=== PATIENT | female | born 1995 | race Caucasian/White ===

== ENCOUNTER 2019-08-31 03:30 | Inpatient (IN) | payer MEDICAID, SELFPAY ==
[2019-08-31] VITALS (28 sets, daily range): BP systolic 91–149; BP diastolic 44–94; PULSE 62–98; RESP 16–18; TEMP 36.4–37.2; O2SAT 95–99; BMI 49.4
[2019-08-31 03:53] LABS: Basophils % 0.3 %; Eosinophils # 0.1 10^3/uL (0.0-0.8); Eosinophils % 1.1 %; Hematocrit 34.9 % (37.0-47.0); Hemoglobin 11.2 g/dL (11.5-15.3); Lymphocytes # 1.7 10^3/uL (0.8-4.8); Lymphocytes % 16.5 %; Mean Corpuscular HGB Conc 32.1 g/dL (30.0-36.0); Mean Corpuscular Hemoglobin 27.6 pg (28.0-34.0); Mean Platelet Volume 11.8 fL (7.4-10.4); Monocytes # 0.9 10^3/uL (0.2-0.9); Monocytes % 8.4 %; Neutrophils # 7.5 10^3/uL (1.8-7.7); Nucleated Red Blood Cells % 0 %; Platelet Count 208 10^3/cmm (130-400); Red Blood Count 4.06 10^6/uL (4.1-5.3); Red Cell Distribution Width 14.6 % (12.1-15.1); White Blood Count 10.3 10^3/uL (4.0-10.0)
[2019-08-31] MEDS: lactated ringers 1,000 ML 999 ML IV (03:57)
--- NOTE | 2019-08-31 04:00 | P.ANESASSM_ITS ---
Pre-Anesthetic Assessment Pre-Anesthetic Assessment: Height/Weight: Height 1.52 m Weight 114.759 kg Temp Pulse BP 98.4 F 91 127/80 08/31/19 03:30 08/31/19 03:59 08/31/19 03:59 Preop Diagnosis: IUP, ruptured membranes Was Beta Femi taken within 24 hours: N/A Last intake: Intake Last Liquid Date 08/31/19 Last Liquid Time 01:30 Last Solid Date 08/30/19 Last Solid Time 19:00 Social: Social History: No alcohol and No tobacco Exam: Pre-Anes Outpt Exam: alert, oriented x 3, clear to auscultation bilaterally and regular rate & rhythm Airway: Submandibular: WNL Cervical ROM: WNL MP: 2 History/ROS: No significant history except as noted Pulmonary: Pulmonary: None reported CV/HEM: CV/HEM: None reported : : None reported Hepatic: Hepatic: None reported GI: GI: GERD Metabolic: Comments: gestational diabetes Musc/skel: Musc/skel: None reported Neuropsych: Neuropsych: None reported Anesthetic Plan: ASA status: 2E Anesthesia: Anesthesia Evaluation Risk of > 500 ml blood loss (7ml/kg in children): Yes, adequate IV access and fluids planned Meds/Allergies Current Medications: Current Medications Generic Name Dose Route Start Last Admin Trade Name Freq PRN Reason Stop Dose Admin Lactated Ringer's 1,000 mls @ 999 m ls/hr 08/31/19 03:28 08/31/19 04:55 Lactated Ringers IV Infused .Q1H1M PRN Infusion Per L&D Rescitati on Protocol [facility] Anesthesia Female Reproductive History: : 2 Data Anesthesia CBC & Chem 7: 08/31/19 03:30 Other Labs: Laboratory Results - last 48 hr 08/31/19 08/31/19 08/31/19 03:30 03:40 04:14 WBC 10.3 H RBC 4.06 L Hgb 11.2 L Hct 34.9 L MCV 86.0 MCH 27.6 L MCHC 32.1 RDW 14.6 Plt Count 208 MPV 11.8 H Neut % (Auto) 73.0 Lymph % (Auto) 16.5 [place] % (Auto) 8.4 Eos % (Auto) 1.1 Baso % (Auto) 0.3 Neut # (Auto) 7.5 Lymph # (Auto) 1.7 [place] # (Auto) 0.9 Eos # (Auto) 0.1 Baso # (Auto) 0.0 Nucleated RBC % (auto) 0 Nucleated RBCs # 0.0 POC Glucose 90 Urine Opiates Screen Negative Ur Barbiturates Screen Negative Ur Phencyclidine Scrn Negative Ur Amphetamines Screen Negative U Benzodiazepines Scrn Negative Urine Cocaine Screen Negative U Marijuana (THC) Screen Negative Cardiac Studies: No Data to Display
[2019-08-31] MEDS: citric acid-sodium citrate 30 mL UDC PO (04:14)
[2019-08-31] MEDS: famotidine 20 mg/2 mL INJ IVP (04:14)
[2019-08-31] MEDS: metoclopramide 5 mg/mL SDV 2 mL 10 MG IVP (04:15)
--- NOTE | 2019-08-31 04:16 | P.HP_ITS ---
Providers/Chief Complaint Admitting Physician: Marvin Rojas DO Primary BOW MAKER PRODUCTION: [facility] Chief Complaint: possible broken water HPI BOW MAKER PRODUCTION History of Present Illness Noemí Mason is a 23 year old female 001 currently at 39 weeks gestation who is being seen at [facility] with plan delivery at [facility] scheduled for repeat this week. Patient presented to labor and delivery as a walk-in early this a.m. with ruptured membranes at 0130 hrs. at home. Upon arriving she does have gross rupture of membranes cervix is described as being 4 to 5 cm dilated. Reassuring tracing. Patient is now admitted for repeat at this time. She is shawn about every 2 to 3 minutes due to advanced cervical dilatation ruptured membranes and previous C- section I do not feel reasonable to transport her to [place] not?she desires same she wishes to undergo her repeat at this institution. This is complicated by gestational diabetes currently on metformin doing well as far as control of her blood sugars. She has been followed with antepartum testing #2 maternal obesity #3 previous . We do have a copy of her antepartum chart. Her blood type is O+ [employer] screen is negative she is rubella protected serology nonreactive hepatitis B surface antigen was negative TSH unremarkable GC chlamydia not detected HIV nonreactive Pap smear described as normal in 2019. Medications vitamins and metformin thousand milligrams daily she is doing fingersticks. Allergies latex. Past medical history unremarkable except for obesity Past surgical history previous with blood transfusion ( was for arrest of descent done in labor. Present Details : 2 Para: 1 Labs Rubella: Immune RPR: Negative GBS: Negative Review of Systems Const: Denies: fever, chills or body aches Eyes: Denies: change in vision Card: Denies: chest pain or palpitations Resp: Denies: shortness of breath or non-productive cough GI: Denies: abdominal pain, nausea, vomiting or constipation : Denies: difficulty urinating, painful urination, urinary frequency, urinary urgency or nighttime urination Musc: Denies: extremity pain, extremity swelling or joint stiffness Skin/Breast: Denies: rash Neuro: Denies: headache, numbness in extremities or weakness in extremities Psych: Denies: anxiety or depression Endo: Denies: cold intolerance or heat intolerance Lalo/Lymph: Denies: easy bruising All/Imm: Denies: hives Medications/Allergies Home Medications Medication Instructions Recorded Confirmed Last Taken Type metformin 1,000 mg PO DAILY 08/31/19 08/31/19 08/30/19 08:00 History ranitidine HCl [Zantac] 150 mg PO DAILY 08/31/19 08/31/19 08/30/19 08:00 History Allergies Allergy/AdvReac Type Severity Reaction Status Date / Time latex Allergy ALGY-Hives Verified 08/31/19 03:09 Vitals/I&O/Wt Last Vital Signs Temp 98.4 F 08/31/19 03:30 Weight last 48 hrs Weight 114.759 kg Weight 114.759 kg Physical Exam Narrative: EXAM NARRATIVE: Alert and oriented no acute distress gravid obese white female HEENT grossly normal Skin clear Neck supple nontender nodes no masses Lungs clear to auscultation Heart regular sinus rhythm Abdomen gravid soft nontender obese. Vertex by Alvin's. Contractions p alpable mild to moderate. heart rate tracing category 1 Pelvic exam EXT/BUS normal Cervix 70% 5 cm vertex -2. Membranes ruptured Extremities grossly intact Neurologic patella DTR 2 Data : 08/31/19 03:30 A&P Assessment and plan (1) Term : Status: Acute (2) Previous section complicating : This lady is admitted with spontaneous rupture membranes 0130 hrs. this morning she has history of previous for arrest desires repeat. This is complicated by gestational diabetes. She presents to us with gross rupture of membranes uterine contractions cervix is 5 cm dilated plan at this time is to admit for repeat in early labor. She has been counseled permits have been signed. She is group B strep negative. Status: Acute (3) Maternal obesity affecting , antepartum: Status: Acute (4) Gestational diabetes: Status: Acute Attestations Medical Necessity Statement*: Term IUP previous ruptured membranes early labor Time Spent in Patient Care: 16 - 35 minutes (>than 50% of time spent in counselling and/or direct pt care on unit) . Coding Level of Care Code New Pt Acute Hotel Lobby Concierge for Leonardog Fwd Patient Type New History Detailed Exam Detailed Medical Decision Making Moderate Complexity Diagnoses Term Z34.90 Previous section complicating O34.219 Maternal obesity affecting , antepartum O99.210 Gestational diabetes O24.419 Time Spent (min) 30 Comment Greater than 50% of time spent in [id number] consultation review of records and counseling.
[2019-08-31 04:18] LABS: Glucose Point of Care 90 mg/dL (70-110)
[2019-08-31 04:21] LABS: Amphetamines Screen Urine Negative (Negative); Barbiturates Screen Urine Negative (Negative); Benzodiazepines Screen Urine Negative (Negative); Cocaine Screen Urine Negative (Negative); Opiate Screen Urine Negative (Negative); PCP Screen Urine Negative (Negative); THC Screen Urine Negative (Negative)
--- NOTE | 2019-08-31 05:52 | P.PCNOB_ITS ---
Delivery Note: Date of delivery: August 31, 2019 See operative report Pre-Delivery Course: History of gestational diabetes on metformin patient received care elsewhere Delivery: Repeat low transverse Post-Delivery Status: Mother stable to floor baby to nursery A&P Assessment and plan (1) Term : Status: Acute (2) Previous section complicating : Status: Acute (3) Maternal obesity affecting , antepartum: Status: Acute (4) Gestational diabetes: Status: Acute Coding Level of Care Code Acute Phytopathologist for Chg Fwd Diagnoses Term Z34.90 Previous section complicating O34.219 Maternal obesity affecting , antepartum O99.210 Gestational diabetes O24.419
--- NOTE | 2019-08-31 05:53 | PM.OP ---
Operative Report Date of procedure: August 31, 2019 Pre-op Diagnosis: IUP, ruptured membranes, maternal obesity, gestational diabetes Post-op diagnosis: same Post-op Findings: Viable male Apgars 8 9 weight 8 pounds 4 ounces normal-looking uterus tubes and ovaries Procedure Done: Repeat low transverse Specimens removed/disposition: Placenta Surgeon: Marvin Rojas Chief Operator Hydroformer: OR nurse assist Anesthesia: Nerve Block Estimated blood loss: 600 cc IV fluids: 800 cc Urine output: 60 Complications: None Findings: Viable male Apgars 8/9 weight 8 pounds 4 ounces Condition: stable Disposition: floor Brief History: 23-year-old now P2 lady followed elsewhere at 39+ weeks gestation presented to labor delivery this morning with rupture membranes 0130 hrs. clear fluid and regular uterine contractions 5 cm dilated upon admission. Patient was admitted for repeat transverse . This is complicated by gestational diabetes on metformin good control Procedure: Patient was identified counseled received Ancef 2 g preop. She was taken to the operating room Labor and Delivery with sequentials in place. New operating room underwent subarachnoid block. Placed in left lateral tilt position Joseph catheter was placed abdomen was prepped and draped. At that time after administration of the block they could not find the baby's heart beat in the OR patient was then quickly prepped and draped and after appropriate level anesthesia transverse incision made in the lower abdomen staying out of the pannicular fold. Incision was carried down through the subcutaneous tissue fascia was incised to the side midline extended bluntly the rectus muscles peritoneum split in the midline. At that time bladder blade was placed there was some scarring from the previous bladder flap to the uterus the bladder was carefully taken down a transverse incision scored in the lower uterine segment uterus was entered fluid was clear the vertex was in the OP position somewhat asynclitic the head was brought into the incision and the baby delivered up to the chest with fundal pressure without difficulty and baby was vigorous and crying underwent bulb suctioning the baby was delivered delayed cord clamping was obtained. Mom was given IV Pitocin with good uterine contractility. Once the cord was clamped cut infant handed off to attendant nursing staff/back strip machine operator in good condition. Apgars 8 9. Mom had good uterine contractility placenta was removed sent to pathology uterus was brought to the exterior wiped clean of clot debris lower uterine segment incision was closed in 2 layers with a running locking stitch and imbricating stitch. There was a small hematoma on the left lateral aspect of the incision closed with [id number] suture of 0 Vicryl. There was no significant bleeding pelvis was irrigated uterus was replaced pelvic gutters were irrigated lower uterine segment was inspected no bleeding there was no extension of the previously noted hematoma. Once pelvic gutters were irrigated peritoneum was closed with a running 2-0 Vicryl. The fascia was irrigated there was hemostatic fascia closed with running 0 Vicryl subcutaneous tissue was then irrigated undermined electrocautery as necessary Sang's fascia closed with running 2-0 Vicryl. Skin was then closed with a running 4-0 Vicryl on a Juan M needle. Steri-Strips and benzoin and then dry sterile dressing was applied. The vagina was then expressed cleaned of clot and debris. The patient was then transferred from the operating table Gerding taken recovery in good condition. Baby to nursery and then to rooming in with parents. There were no complications, anticipate discharge home postop day 2. We will follow monitor glucoses on the floor. End of this dictation signed, Marvin Rojas DO, [facility]
--- NOTE | 2019-08-31 07:09 | PC.NURSE ---
MOM MOVED UP FROM PACU AT THIS TIME
[2019-08-31] MEDS: ketorolac 30 mg/mL INJ IVP (08:33)
[2019-08-31] MEDS: dextrose 5%-lactated ringers 1,000 ML 125 ML IV (09:33)
[2019-08-31 13:56] LABS: Glucose Point of Care 130 mg/dL (70-110)
[2019-08-31 17:49] LABS: Hematocrit 29.6 % (37.0-47.0); Hemoglobin 9.5 g/dL (11.5-15.3); Mean Corpuscular HGB Conc 32.1 g/dL (30.0-36.0); Mean Corpuscular Hemoglobin 28.4 pg (28.0-34.0); Mean Corpuscular Volume 88.6 fL (81-99); Mean Platelet Volume 11.2 fL (7.4-10.4); Platelet Count 177 10^3/cmm (130-400); Red Blood Count 3.34 10^6/uL (4.1-5.3); Red Cell Distribution Width 14.6 % (12.1-15.1); White Blood Count 11.6 10^3/uL (4.0-10.0)
[2019-08-31 20:09] LABS: Glucose Point of Care 81 mg/dL (70-110)
[2019-09-01] VITALS: BP 132/86; PULSE 88; RESP 16
[2019-09-01 04:00] VITALS: BP 148/91; PULSE 102; RESP 16
[2019-09-01] MEDS: HYDROcodone-acetaminophen 5-325 mg Tablet PO (05:47)
--- NOTE | 2019-09-01 06:57 | ANE.PACU2 ---
 Inpatient post-anesthesia follow up: Airway intact: Yes Vital signs: Temperature 98.2 F Pulse Rate 102 Respiratory Rate 16 Blood Pressure 148/91 Pulse Oximetry 98 Oxygen Delivery Me thod Room Air Oxygen Flow Rate Fraction of Inspir ed Oxygen Hydration adequate: Yes Nausea and vomiting: No Mental status: Baseline Additional Comments: up and walking, no signs of infection, no headches
[2019-09-01] MEDS: prenatal vitamin Capsule 1 CAP PO (09:56)
[2019-09-01] MEDS: ferrous sulfate EC 325 mg Tablet PO (09:57)
[2019-09-01] MEDS: docusate sodium 100 mg Capsule PO (09:57)
[2019-09-01 10:09] LABS: Glucose Point of Care 148 mg/dL (70-110)
[2019-09-01 10:45] VITALS: BP 147/94; PULSE 92; RESP 18; TEMP 36.8
--- NOTE | 2019-09-01 13:49 | P.DS_ITS ---
Discharge Providers DISMANTLER Date of Admission: 08/31/19 03:30 Date of Discharge: 09/01/19 Attending Provider at Admission: Marvin Rojas DO Attending Provider at Discharge: Marvin Rojas DO Diagnoses at Discharge Discharge Diagnosis (1) Term : Status: Acute (2) Previous section complicating : Status: Acute (3) Maternal obesity affecting , antepartum: Status: Acute (4) Gestational diabetes: Status: Acute (5) Spontaneous rupture of amniotic membranes: Status: Acute Reason for Visit Reason for Visit: Reason For Visit: possible broken water Hospital Course Hospital Course: 23-year-old G2, P1 now P2 lady who is received her care elsewhere within the [facility] system. Originally from [facility]. Presented to us at 39+ weeks gestation with spontaneous rupture of membranes approximately 0130 hrs. in the a.m. followed by uterine contractions. Is approximate 5 cm dilated upon presenting 2 months. There is of note that she was scheduled for repeat at [facility] later this week and her 39th week gestation. Upon evaluation labor delivery she was in the shawn category 1 tracing had spontaneous rupture of membranes at 5 cm. Patient and spouse were counseled and plans were made to proceed with . Was taken to the operating room underwent uncomplicated repeat . Productive of a viable . Postoperatively patient did well she was discharged home late postop day 1 at her request with plan to follow-up with us in 2 weeks. Time of discharge she had good pain control with voiding passing gas ambulatory and without complaint. Discharge Summary: See above patient was discharged late a.m. postop day 1. Plan follow-up in 2 weeks. She is discharged on Tylenol ibuprofen every 8 hours for 5 days with supplemented with oxycodone as needed for pain stool softeners as needed ferrous sulfate twice daily. At the time of discharge she has no complaints denies fevers chills no nausea no vomiting no headaches no visual changes no right upper quadrant midepigastric pain. She has no unusual bleeding she has no pain or discomfort in her legs no unusual swelling. Information Peripartum Data: Delivery Method: Section Physical Exam Narrative: EXAM NARRATIVE: Alert and oriented no acute distress pleasant obese female. HEENT grossly normal Abdomen is obese soft nontender good bowel sounds uterus is nontender U- 1 incision is intact and dry no weeping. Steri-Strips in place Lungs clear to auscultation Heart regular sinus rhythm Pelvic exam deferred Extremities grossly intact mild edema no calf tenderness Neurologic exam shows normal gait patella DTR 2/4 Urinary Catheter Management^: Joseph: Cath Placed During This Visit: yes, but has since been removed by the nurse Reason for Continuing Indwelling Catheter: Decision to DC Catheter Urinary Catheter Date of Insertion: 08/31/19 Urinary Catheter Time of Insertion: 04:40 Date Urinary Catheter Removed: 08/31/19 Time Urinary Catheter Discontinued: 14:22 Discharge Data Data Completed and Pending: Completed Studies During Hospitalization Category Date Time Status Pathology: Surgic al [PTH] Routine Pth 08/31/19 05:46 Completed Labs from last 24 hours 09/01/19 08/31/19 08/31/19 09:54 20:01 17:40 WBC 11.6 H RBC 3.34 L Hgb 9.5 L Hct 29.6 L MCV 88.6 MCH 28.4 MCHC 32.1 RDW 14.6 Plt Count 177 MPV 11.2 H POC Glucose 148 81 08/31/19 13:12 WBC RBC Hgb Hct MCV MCH MCHC RDW Plt Count MPV POC Glucose 130 Vitals: Last Vital Signs Temp 98.2 F 08/31/19 20:00 Pulse 102 H 09/01/19 04:00 Resp 16 09/01/19 04:00 BP 148/91 09/01/19 04:00 Pulse Ox 98 08/31/19 10:05 Discharge Plan Discharge Patient Disposition: Home, Self-Care Condition: Stable Prescriptions: New ibuprofen 800 mg Tablet 800 mg PO TID Qty: 60 RF: 0 ferrous sulfate 325 mg (65 mg iron) Tablet,Delayed Release (Dr/Ec) 325 mg PO BIDWM Qty: 60 RF: 2 oxycodone 5 mg Tablet 5 mg PO Q4H PRN (Reason: Moderate Pain) 30 Days Qty: 30 RF: 0 acetaminophen 325 mg Tablet 650 mg PO Q6H PRN (Reason: Mild Pain or Temp >100.4) Qty: 90 RF: 0 docusate sodium 100 mg Capsule 100 mg PO BID Qty: 60 RF: 2 Continued Zantac 150 mg Tablet 150 mg PO DAILY RF: 0 Discontinued metformin 1,000 mg Tablet,Er Elvis.Retention 24 Hr 1,000 mg PO DAILY RF: 0 Discharge Orders: Discharge Order (Routine); Ordered 09/01/19 Ordered By: Marvin Rojas Referrals: Marvin Rojas DO [Physician] - (follow up incision check 2 weeks) Discharge Diet: Regular Discharge Activity: Increase activity as tolerated Patient Instructions: Vitamins (By mouth), Breast Care for the Breast Feeding Mother (DC), OB Discharge Report, OB Food/Drug Interaction Guide, OB Care at Home, OB Home Care, OB Proud Parent Packet, OB Vaginal Deliveries Discharge Attestations DISMANTLER Time Spent in Discharge Care*: greater than 30 min Specific Discharge Activities: Specific discharge activities: educating patient, documenting/other paperwork and evaluating patient/reviewing data Other discharge activites (optional): Greater than 50% of [id number] time spent reviewing chart giving patient education for postoperative course. Plan to follow-up with us in 2 weeks and follow-up with her primary provider in 6 weeks. Status at Discharge: Cognitive status at discharge: cognitively intact , Behavioral status at discharge: cooperative , Functional status at discharge: independent ambulation Overall status at discharge: patient is back to baseline Coding Level of Care Code Acute Sole Rougher for Chg Fwd History Expanded Problem Focused Exam Expanded Problem Focused Medical Decision Making Moderate Complexity Diagnoses Term Z34.90 Previous section complicating O34.219 Maternal obesity affecting , antepartum O99.210 Gestational diabetes O24.419 Spontaneous rupture of amniotic membranes Time Spent (min) 35 Comment Greater than 50% of [id number] time spent in patient education counseling for expected postoperative course
--- NOTE | 2019-09-01 13:57 | P.DS_ITS ---
Discharge Providers COSTING ANALYST Date of Admission: 08/31/19 03:30 Date of Discharge: 09/01/19 Attending Provider at Admission: Marvin Rojas DO Attending Provider at Discharge: Marvin Rojas DO Diagnoses at Discharge Discharge Diagnosis (1) Term : Status: Acute (2) Previous section complicating : Status: Acute (3) Maternal obesity affecting , antepartum: Status: Acute (4) Gestational diabetes: Status: Acute (5) Spontaneous rupture of amniotic membranes: Status: Acute Reason for Visit Reason for Visit: Reason For Visit: possible broken water Hospital Course Hospital Course: 23-year-old G2, P1 now P2 lady who is received her care elsewhere within the [facility] system. Originally from [facility]. Presented to us at 39+ weeks gestation with spontaneous rupture of membranes approximately 0130 hrs. in the a.m. followed by uterine contractions. Is approximate 5 cm dilated upon presenting 2 months. There is of note that she was scheduled for repeat at [facility] later this week and her 39th week gestation. Upon evaluation labor delivery she was in the shawn category 1 tracing had spontaneous rupture of membranes at 5 cm. Patient and spouse were counseled and plans were made to proceed with . Was taken to the operating room underwent uncomplicated repeat . Productive of a viable . Postoperatively patient did well she was discharged home late postop day 1 at her request with plan to follow-up with us in 2 weeks. Time of discharge she had good pain control with voiding passing gas ambulatory and without complaint. Information Peripartum Data: Delivery Method: Section Physical Exam Urinary Catheter Management^: Joseph: Cath Placed During This Visit: yes, but has since been removed by the nurse Reason for Continuing Indwelling Catheter: Decision to DC Catheter Urinary Catheter Date of Insertion: 08/31/19 Urinary Catheter Time of Insertion: 04:40 Date Urinary Catheter Removed: 08/31/19 Time Urinary Catheter Discontinued: 14:22 Discharge Data Data Completed and Pending: Completed Studies During Hospitalization Category Date Time Status Pathology: Surgic al [PTH] Routine Pth 08/31/19 05:46 Completed Labs from last 24 hours 09/01/19 08/31/19 08/31/19 09:54 20:01 17:40 WBC 11.6 H RBC 3.34 L Hgb 9.5 L Hct 29.6 L MCV 88.6 MCH 28.4 MCHC 32.1 RDW 14.6 Plt Count 177 MPV 11.2 H POC Glucose 148 81 Vitals: Last Vital Signs Temp 98.2 F 08/31/19 20:00 Pulse 102 H 09/01/19 04:00 Resp 16 09/01/19 04:00 BP 148/91 09/01/19 04:00 Pulse Ox 98 08/31/19 10:05 Discharge Plan Discharge Patient Disposition: Home, Self-Care Condition: Stable Prescriptions: New ibuprofen 800 mg Tablet 800 mg PO TID Qty: 60 RF: 0 ferrous sulfate 325 mg (65 mg iron) Tablet,Delayed Release (Dr/Ec) 325 mg PO BIDWM Qty: 60 RF: 2 oxycodone 5 mg Tablet 5 mg PO Q4H PRN (Reason: Moderate Pain) 30 Days Qty: 30 RF: 0 acetaminophen 325 mg Tablet 650 mg PO Q6H PRN (Reason: Mild Pain or Temp >100.4) Qty: 90 RF: 0 docusate sodium 100 mg Capsule 100 mg PO BID Qty: 60 RF: 2 Continued Zantac 150 mg Tablet 150 mg PO DAILY RF: 0 Discontinued metformin 1,000 mg Tablet,Er Elvis.Retention 24 Hr 1,000 mg PO DAILY RF: 0 Discharge Orders: Discharge Order (Routine); Ordered 09/01/19 Ordered By: Marvin Rojas Referrals: Marvin Rojas DO [Physician] - (follow up incision check 2 weeks) Discharge Diet: Regular Discharge Activity: Increase activity as tolerated Patient Instructions: Vitamins (By mouth), Breast Care for the Breast Feeding Mother (DC), OB Discharge Report, OB Food/Drug Interaction Guide, OB Care at Home, OB Home Care, OB Proud Parent Packet, OB Vaginal Deliveries Discharge Attestations COSTING ANALYST Time Spent in Discharge Care*: greater than 30 min Status at Discharge: Cognitive status at discharge: cognitively intact , Behavioral status at discharge: cooperative , Functional status at discharge: independent ambulation Overall status at discharge: patient is back to baseline Coding Level of Care Code Acute Carding Utility Tender for Chg Fwd Diagnoses Term Z34.90 Previous section complicating O34.219 Maternal obesity affecting , antepartum O99.210 Gestational diabetes O24.419 Spontaneous rupture of amniotic membranes
[2019-09-01 15:30] VITALS: BP 137/93; PULSE 105; RESP 20; TEMP 36.9
== END 2019-09-01 16:00 | disposition home or self-care (01) | DRG 788 ==
LOC: OBGYN 08:14 → OPOB 08:14
PROVIDERS: Admitting Provider Obstetrics & Gynecology Female Pelvic Medicine and Reconstructive Surgery; Family Provider Registered Nurse; Visit Provider Obstetrics & Gynecology Female Pelvic Medicine and Reconstructive Surgery
PROC: 10D00Z1 Extraction of Products of Conception, Low, Open Approach (ICD-10-PCS; CPT 59514; principal; 2019-08-31 04:25)
DX: O34.211 Maternal care for low transverse scar from previous cesarean delivery (principal); N85.8 Other specified noninflammatory disorders of uterus; Z3A.39 39 weeks gestation of pregnancy; Z37.0 Single live birth; O99.214 Obesity complicating childbirth; O24.425 Gestational diabetes mellitus in childbirth, controlled by oral hypoglycemic drugs
CPT/HCPCS: 12345; 36415; 36416; 51702; 59409; 80306; 82962; 83986; 85025; 85027; 86850; 86900; 88307; 96375; 99211; J0690; J1885; J2001; J2274; J2370; J2405; J2590; J2765; J3490

== ENCOUNTER → 2019-10-14 08:07 | Outpatient (BNVA) | payer MEDICAID, SELFPAY | PROVIDERS: Family Provider Registered Nurse; Visit Provider Nurse Practitioner Women's Health | DX: O24.419 Gestational diabetes mellitus in pregnancy, unspecified control (principal) | CPT/HCPCS: 82947; 82951 ==

== ENCOUNTER → 2020-03-01 10:17 | Outpatient (BNVA) | payer MEDICAID, SELFPAY | PROVIDERS: Family Provider Registered Nurse; Visit Provider Nurse Practitioner Family | DX: M79.641 Pain in right hand (principal) | CPT/HCPCS: 73110 ==

== ENCOUNTER → 2020-08-10 09:24 | Outpatient (BNVA) | payer MEDICAID, SELFPAY | PROVIDERS: Family Provider Registered Nurse; PCP Registered Nurse; Referring Provider Registered Nurse; Visit Provider Specialist | DX: M25.539 Pain in unspecified wrist (principal) | CPT/HCPCS: 73110 ==

== ENCOUNTER → 2020-11-25 10:20 | Outpatient (BNVA) | payer MEDICAID, SELFPAY | PROVIDERS: Family Provider Registered Nurse; PCP Registered Nurse; Visit Provider Nurse Practitioner Women's Health | DX: Z32.01 Encounter for pregnancy test, result positive (principal); N92.6 Irregular menstruation, unspecified | CPT/HCPCS: 81025 ==

== ENCOUNTER → 2020-12-09 11:45 | Outpatient (BNVA) | payer MEDICAID, SELFPAY | PROVIDERS: Family Provider Registered Nurse; PCP Registered Nurse; Visit Provider Obstetrics & Gynecology | DX: Z34.90 Encounter for supervision of normal pregnancy, unspecified, unspecified trimester (principal) | CPT/HCPCS: 82950 ==

== ENCOUNTER → 2021-01-13 14:30 | Outpatient (BNVA) | payer MEDICAID, SELFPAY | PROVIDERS: Family Provider Registered Nurse; PCP Registered Nurse; Visit Provider Obstetrics & Gynecology | DX: O09.899 Supervision of other high risk pregnancies, unspecified trimester (principal); O34.219 Maternal care for unspecified type scar from previous cesarean delivery; O09.299 Supervision of pregnancy with other poor reproductive or obstetric history, unspecified trimester; Z86.32 Personal history of gestational diabetes; O99.211 Obesity complicating pregnancy, first trimester; Z30.2 Encounter for sterilization | CPT/HCPCS: 80307; 83036; 84315; 85025; 86592; 86762; 86803; 86850; 86900; 87086; 87340 ==

== ENCOUNTER → 2021-01-16 00:01 | Outpatient (BNVA) | payer MEDICAID, SELFPAY | PROVIDERS: Family Provider Registered Nurse; PCP Registered Nurse; Visit Provider Obstetrics & Gynecology | DX: O09.899 Supervision of other high risk pregnancies, unspecified trimester (principal) | CPT/HCPCS: 84156 ==

== ENCOUNTER → 2021-02-03 11:24 | Outpatient (BNVA) | payer MEDICAID, SELFPAY | PROVIDERS: Family Provider Registered Nurse; PCP Registered Nurse; Visit Provider Obstetrics & Gynecology | DX: O12.00 Gestational edema, unspecified trimester (principal) | CPT/HCPCS: 81000; 87086 ==

== ENCOUNTER → 2021-02-09 11:41 | Outpatient (BNVA) | payer MEDICAID, SELFPAY | PROVIDERS: Family Provider Registered Nurse; PCP Registered Nurse; Visit Provider Nurse Practitioner Women's Health | DX: O09.899 Supervision of other high risk pregnancies, unspecified trimester (principal); O34.219 Maternal care for unspecified type scar from previous cesarean delivery; O09.299 Supervision of pregnancy with other poor reproductive or obstetric history, unspecified trimester; Z86.32 Personal history of gestational diabetes; O99.211 Obesity complicating pregnancy, first trimester; Z30.2 Encounter for sterilization | CPT/HCPCS: 84156; 84315; 87491; 87591; 87661; 87806 ==

== ENCOUNTER → 2021-03-09 09:56 | Outpatient (BNVA) | payer MEDICAID, SELFPAY | PROVIDERS: Family Provider Registered Nurse; PCP Registered Nurse; Visit Provider Obstetrics & Gynecology | DX: Z36.87 Encounter for antenatal screening for uncertain dates (principal) | CPT/HCPCS: 76805 ==

== ENCOUNTER → 2021-04-07 10:22 | Outpatient (BNVA) | payer MEDICAID, SELFPAY | PROVIDERS: Family Provider Registered Nurse; PCP Registered Nurse; Visit Provider Obstetrics & Gynecology | DX: O09.899 Supervision of other high risk pregnancies, unspecified trimester (principal); R42 Dizziness and giddiness; Z3A.00 Weeks of gestation of pregnancy not specified | CPT/HCPCS: 82950; 84315; 85025 ==

== ENCOUNTER → 2021-04-19 08:10 | Outpatient (BNVA) | payer MEDICAID, SELFPAY | PROVIDERS: Family Provider Registered Nurse; PCP Registered Nurse; Visit Provider Obstetrics & Gynecology | DX: O09.899 Supervision of other high risk pregnancies, unspecified trimester (principal); O99.810 Abnormal glucose complicating pregnancy | CPT/HCPCS: 82951; 82952 ==

== ENCOUNTER 2021-06-02 10:30 | Outpatient (CLI) | payer MEDICAID, SELFPAY ==
[2021-06-02 10:30] VITALS: BMI 50.1
[2021-06-02 10:40] VITALS: BP 152/84; PULSE 111
[2021-06-02 11:00] VITALS: BP 136/82; PULSE 104
[2021-06-02 11:22] LABS: Total Volume, Urine 1400 mL; Urine Total Protein 8.7 mg/24HR (0-150); Urine Total Protein 24 Hour 121.8 mg/dL (0-150)
[2021-06-02 11:24] VITALS: BP 136/82; PULSE 104; RESP 18; TEMP 36.6
== END 2021-06-02 11:20 | disposition home or self-care (01) ==
LOC: OPOB 10:31 → OBGYN 10:32
PROVIDERS: Family Provider Registered Nurse; PCP Registered Nurse; Visit Provider Family Medicine
DX: O16.9 Unspecified maternal hypertension, unspecified trimester (principal); Z3A.00 Weeks of gestation of pregnancy not specified
CPT/HCPCS: 59025; 84156; 99211

== ENCOUNTER 2021-06-06 08:50 | Outpatient (CLI) | payer MEDICAID, SELFPAY ==
[2021-06-06 09:17] VITALS: BP 134/83; PULSE 109
[2021-06-06 09:59] VITALS: BP 121/71; PULSE 103
[2021-06-06 11:20] VITALS: BMI 50.8
== END 2021-06-06 10:10 | disposition home or self-care (01) ==
LOC: OPOB 08:53 → OBGYN 08:54
PROVIDERS: Family Provider Registered Nurse; PCP Registered Nurse; Visit Provider Family Medicine
DX: O16.9 Unspecified maternal hypertension, unspecified trimester (principal); Z3A.00 Weeks of gestation of pregnancy not specified
CPT/HCPCS: 59025; 99211

== ENCOUNTER 2021-06-09 08:40 | Outpatient (CLI) | payer MEDICAID, SELFPAY ==
[2021-06-09 08:40] VITALS: BMI 51.1
[2021-06-09 08:53] VITALS: BP 138/81; PULSE 99; TEMP 35.8
[2021-06-09 09:13] VITALS: BP 139/86; PULSE 100
[2021-06-09 09:35] VITALS: BP 139/86; PULSE 100; RESP 20; TEMP 35.9
== END 2021-06-09 09:30 | disposition home or self-care (01) ==
LOC: OPOB 08:43 → OBGYN 08:48
PROVIDERS: Family Provider Registered Nurse; PCP Registered Nurse; Visit Provider Family Medicine
DX: O24.419 Gestational diabetes mellitus in pregnancy, unspecified control (principal); Z3A.00 Weeks of gestation of pregnancy not specified
CPT/HCPCS: 59025; 99211

== ENCOUNTER 2021-06-13 08:20 | Outpatient (CLI) | payer MEDICAID, SELFPAY ==
[2021-06-13] VITALS (7 sets, daily range): BP systolic 100–123; BP diastolic 65–87; PULSE 102–115; RESP 17
[2021-06-13 09:28] LABS: Basophils % 0.3 %; Eosinophils % 0.2 %; Hematocrit 29.2 % (37.0-47.0); Hemoglobin 9.3 g/dL (11.5-15.3); Lymphocytes # 0.6 10^3/uL (0.8-4.8); Lymphocytes % 10.1 %; Mean Corpuscular HGB Conc 31.8 g/dL (30.0-36.0); Mean Corpuscular Hemoglobin 27.7 pg (28.0-34.0); Mean Corpuscular Volume 86.9 fl (81-99); Mean Platelet Volume 10.9 fL (7.4-10.4); Monocytes # 1.1 10^3/uL (0.2-0.9); Monocytes % 17.7 %; Neutrophils # 4.16 10^3/uL (1.8-7.7); Neutrophils % 70.3 %; Nucleated Red Blood Cells % 0 %; Platelet Count 159 10^3/cmm (130-400); Red Blood Count 3.36 10^6/uL (4.1-5.3); Red Cell Distribution Width 13.9 % (12.1-15.1); White Blood Count 5.9 10^3/uL (4.0-10.0)
[2021-06-13 09:41] LABS: Add Urine Microscopic? YES; Bilirubin Urine Neg (Negative); Blood Urine 2+ (Negative); Glucose Urine UA Norm (Normal); Ketones Urine Negative (Negative); Leukocyte Esterase Urine Negative (Negative); Nitrate Urine Negative (Negative); Protein Urine Neg (Negative); RBC Urine 0-4 /hpf (0-2); Urine Appearance Clear (CLEAR); Urine Color Yellow (Yellow); Urobilinogen Urine Norm (Negative); pH Urine 6 (5-7)
[2021-06-13 09:42] LABS: Add Urine Culture? No; Bacteria Urine 2+ /hpf; Mucus Urine 3+ /hpf
[2021-06-13 09:47] LABS: Alanine Aminotransferase 15 U/L (0-33); Albumin Level 3.4 g/dL (3.5-5.2); Alkaline Phosphatase 84 IU/L (35-105); Anion Gap 17.6 (5-19); Aspartate Amino Transferase 22 U/L (0-32); Blood Urea Nitrogen 5 mg/dL (6-20); Calcium 8.1 mg/dL (8.5-10.5); Carbon Dioxide 22 mmol/L (22-29); Chloride 99 mmol/L (98-107); Globulin 2.6 g/dL (1.3-4.6); Glomerular Filtration Rate 149.1 mL/min (90-130); Glucose 120 mg/dL (65-115); Osmolality Calculated 278 mOsm/kg (285-295); Potassium 3.6 mmol/L (3.5-5.1); Sodium 135 mmol/L (136-145); Total Bilirubin 0.2 mg/dL (0.15-1.2); Uric Acid 4.8 mg/dL (2.4-5.7)
[2021-06-13 10:11] LABS: Urine Creatinine 264 mg/dL (28-217)
[2021-06-13 10:13] LABS: UPRO/UCREAT Ratio 0.12 mg/mg CR; Urine Protein Random 31 mg/dL
== END 2021-06-13 10:24 | disposition home or self-care (01) ==
LOC: OPOB 08:23 → OBGYN 08:26
PROVIDERS: Family Provider Registered Nurse; PCP Registered Nurse; Visit Provider Family Medicine
DX: O16.9 Unspecified maternal hypertension, unspecified trimester (principal); Z3A.00 Weeks of gestation of pregnancy not specified
CPT/HCPCS: 59025; 80053; 81001; 82570; 84156; 84550; 85025; 99211

== ENCOUNTER 2021-06-16 10:05 | Outpatient (CLI) | payer MEDICAID, SELFPAY ==
[2021-06-16 10:15] VITALS: BMI 70.7
[2021-06-16 10:22] VITALS: BP 121/71; PULSE 104; TEMP 35.6
[2021-06-16 10:28] VITALS: RESP 17
[2021-06-16 10:43] VITALS: BP 128/75; PULSE 97
[2021-06-16 11:03] VITALS: BP 123/76; PULSE 93
== END 2021-06-16 11:10 | disposition home or self-care (01) ==
LOC: OPOB 10:10 → OBGYN 10:11
PROVIDERS: Family Provider Registered Nurse; PCP Registered Nurse; Visit Provider Family Medicine
DX: O16.9 Unspecified maternal hypertension, unspecified trimester (principal); Z3A.00 Weeks of gestation of pregnancy not specified
CPT/HCPCS: 59025; 99211

== ENCOUNTER 2021-06-20 09:12 | Outpatient (CLI) | payer MEDICAID, SELFPAY ==
[2021-06-20 09:12] VITALS: BMI 52.1
[2021-06-20 09:19] VITALS: BP 133/88; PULSE 106
== END 2021-06-20 09:45 | disposition home or self-care (01) ==
LOC: OPOB 09:14 → OBGYN 09:15
PROVIDERS: Family Provider Registered Nurse; PCP Registered Nurse; Visit Provider Family Medicine
DX: O16.9 Unspecified maternal hypertension, unspecified trimester (principal); Z3A.00 Weeks of gestation of pregnancy not specified
CPT/HCPCS: 59025

== ENCOUNTER 2021-06-23 08:25 | Outpatient (CLI) | payer MEDICAID, SELFPAY ==
[2021-06-23 08:34] VITALS: BP 133/88; PULSE 112; TEMP 35.6
[2021-06-23 08:42] VITALS: BMI 51.5
[2021-06-23 08:50] VITALS: BP 138/88; PULSE 96
== END 2021-06-23 09:00 | disposition home or self-care (01) ==
LOC: OPOB 08:31 → OBGYN 08:31
PROVIDERS: Family Provider Registered Nurse; PCP Registered Nurse; Visit Provider Family Medicine
DX: O24.419 Gestational diabetes mellitus in pregnancy, unspecified control (principal); O16.9 Unspecified maternal hypertension, unspecified trimester; Z3A.00 Weeks of gestation of pregnancy not specified
CPT/HCPCS: 59025; 99211

== ENCOUNTER 2021-06-27 09:13 | Outpatient (CLI) | payer MEDICAID, SELFPAY ==
[2021-06-27 09:28] VITALS: TEMP 35.5
[2021-06-27 09:32] VITALS: BP 141/74; PULSE 95
[2021-06-27 09:40] VITALS: BMI 51.5
[2021-06-27 09:45] VITALS: RESP 16
[2021-06-27 09:47] VITALS: BP 146/79; PULSE 94
== END 2021-06-27 10:00 | disposition home or self-care (01) ==
LOC: OPOB 09:18 → OBGYN 09:19
PROVIDERS: Family Provider Registered Nurse; PCP Registered Nurse; Visit Provider Family Medicine
DX: O24.419 Gestational diabetes mellitus in pregnancy, unspecified control (principal); O16.9 Unspecified maternal hypertension, unspecified trimester; Z3A.00 Weeks of gestation of pregnancy not specified
CPT/HCPCS: 59025

== ENCOUNTER 2021-06-30 09:25 | Outpatient (CLI) | payer MEDICAID, SELFPAY ==
[2021-06-30 09:38] VITALS: BP 141/87; PULSE 126; TEMP 35.7
[2021-06-30 09:44] VITALS: BMI 51.7
[2021-06-30 09:53] VITALS: BP 135/76; PULSE 102
== END 2021-06-30 10:06 | disposition home or self-care (01) ==
LOC: OPOB 09:30 → OBGYN 09:31
PROVIDERS: Family Provider Registered Nurse; PCP Registered Nurse; Visit Provider Family Medicine
DX: O16.9 Unspecified maternal hypertension, unspecified trimester (principal); Z3A.00 Weeks of gestation of pregnancy not specified
CPT/HCPCS: 59025

== ENCOUNTER 2021-07-04 09:10 | Outpatient (CLI) | payer MEDICAID, SELFPAY ==
[2021-07-04 09:10] VITALS: BMI 52.3
[2021-07-04 09:22] VITALS: BP 141/84; PULSE 100
[2021-07-04 09:37] VITALS: BP 145/95; PULSE 103
[2021-07-04 09:43] VITALS: BP 144/85; PULSE 98
[2021-07-04 09:57] VITALS: BP 144/85; PULSE 98; RESP 20
[2021-07-04 10:11] LABS: Estmated Average Glucose 117; Hemoglobin A1C 5.7 % (4.0-6.0)
== END 2021-07-04 09:48 | disposition home or self-care (01) ==
LOC: OPOB 09:13 → OBGYN 09:15
PROVIDERS: Family Provider Registered Nurse; PCP Registered Nurse; Visit Provider Family Medicine
DX: O24.419 Gestational diabetes mellitus in pregnancy, unspecified control (principal); Z3A.00 Weeks of gestation of pregnancy not specified
CPT/HCPCS: 36415; 59025; 83036; 99211

== ENCOUNTER 2021-07-07 12:09 | Inpatient (IN) | payer MEDICAID, SELFPAY ==
[2021-07-07] VITALS (35 sets, daily range): BP systolic 112–171; BP diastolic 76–106; PULSE 72–131; RESP 17–18; TEMP 36.4–37.2; O2SAT 97–100; BMI 52.3
[2021-07-07] MEDS: NIFEdipine 10 mg Capsule PO (10:49)
[2021-07-07 11:12] LABS: Basophils % 0.2 %; Eosinophils # 0.1 10^3/uL (0.0-0.8); Eosinophils % 0.9 %; Hematocrit 31.2 % (37.0-47.0); Lymphocytes # 1.4 10^3/uL (0.8-4.8); Lymphocytes % 13.2 %; Mean Corpuscular HGB Conc 32.1 g/dL (30.0-36.0); Mean Corpuscular Hemoglobin 27.4 pg (28.0-34.0); Mean Corpuscular Volume 85.5 fl (81-99); Monocytes # 0.8 10^3/uL (0.2-0.9); Neutrophils % 76.7 %; Nucleated Red Blood Cells % 0 %; Platelet Count 263 10^3/cmm (130-400); Red Blood Count 3.65 10^6/uL (4.1-5.3); Red Cell Distribution Width 14.2 % (12.1-15.1); White Blood Count 10.4 10^3/uL (4.0-10.0)
[2021-07-07 11:28] LABS: Alanine Aminotransferase 8 U/L (0-33); Albumin Level 3.7 g/dL (3.5-5.2); Alkaline Phosphatase 105 IU/L (35-105); Anion Gap 14.8 (5-19); Aspartate Amino Transferase 12 U/L (0-32); Blood Urea Nitrogen 7 mg/dL (6-20); Calcium 9.4 mg/dL (8.5-10.5); Carbon Dioxide 23 mmol/L (22-29); Chloride 100 mmol/L (98-107); Glomerular Filtration Rate 149.1 mL/min (90-130); Glucose 82 mg/dL (65-115); Osmolality Calculated 275 mOsm/kg (285-295); Potassium 3.8 mmol/L (3.5-5.1); Sodium 134 mmol/L (136-145); Total Bilirubin 0.2 mg/dL (0.15-1.2); Total Protein 6.7 g/dL (6.6-8.7); Uric Acid 4.1 mg/dL (2.4-5.7)
[2021-07-07 11:30] LABS: Urine Creatinine 153 mg/dL (28-217); Urine Protein Random 18 mg/dL
[2021-07-07 11:31] LABS: UPRO/UCREAT Ratio 0.12 mg/mg CR
[2021-07-07 13:12] LABS: Adenovirus Not Detected (NOT DETECT); Chlamydia Pneumoniae Not Detected (NOT DETECT); Coronavirus 229E,HKU1,NL63,OC4 Not Detected (NOT DETECT); Human Metapneumovirus Not Detected (NOT DETECT); Human Rhinovirus/Enterovirus Not Detected (NOT DETECT); Influenza A Not Detected (NOT DETECT); Influenza A H1 Not Detected (NOT DETECT); Influenza A H1-2009 Not Detected (NOT DETECT); Influenza A H3 Not Detected (NOT DETECT); Influenza B Not Detected (NOT DETECT); Mycoplasma Pneumoniae Not Detected (NOT DETECT); Parainfluenza Virus Type 1 Not Detected (NOT DETECT); Parainfluenza Virus Type 2 Not Detected (NOT DETECT); Parainfluenza Virus Type 3 Not Detected (NOT DETECT); Parainfluenza Virus Type 4 Not Detected (NOT DETECT); Respiratory Syncytial Virus A Not Detected (NOT DETECT); Respiratory Syncytial Virus B Not Detected (NOT DETECT); SARS-COV-2 Not Detected (NOT DETECT)
[2021-07-07] MEDS: alum-mag-hydroxide-sime 30 mL UDC PO (14:26)
[2021-07-07] MEDS: lactated ringers 1,000 ML 500 ML IV (14:26)
[2021-07-07] MEDS: citric acid-sodium citrate 30 mL UDC PO (15:09)
[2021-07-07] MEDS: metoclopramide 5 mg/mL SDV 2 mL 10 MG IVP (15:10)
[2021-07-07] MEDS: famotidine 20 mg/2 mL INJ IVP (15:10)
--- NOTE | 2021-07-07 15:17 | ANES.PREANE2 ---
Pre-Anesthetic Assessment Height/Weight: Height 1.52 m Weight 121.563 kg Temp Pulse Resp BP 98.9 F 95 17 138/93 07/07/21 10:24 07/07/21 14:56 07/07/21 13:42 07/07/21 14:56 Preop Diagnosis: IUP, ruptured membranes, maternal obesity, gestational diabetes Operation Date: 07/07/21 16:20 Proposed Procedures p Section Repeat With Tubal(Not Applicable) - Jocelyn Welch MD Familial anesthetic complications: None Was Beta Femi taken within 24 hours: N/A Was Clonidine taken within 24 hours: N/A Social No alcohol and No tobacco Exam alert, oriented x 3, clear to auscultation bilaterally and regular rate & rhythm Airway Submandibular: within normal limits Cervical ROM: within normal limits Mallampati: Class II Dentition: full Metabolic Morbid Obesity Gestational DM Anesthetic Plan ASA status: 2 Anesthesia: Regional (specify below) (SAB) Other: Previous C/S Risk of > 500 ml blood loss (7ml/kg in children): Yes, adequate IV access and fluids planned Medications/Allergies Home Medications Medication Instructions Recorded Confirmed Last Taken Type prenat.vits,georgie,lqj-pjli-xmmce 1 tab PO DAILY 11/25/20 06/30/21 06/08/21 08:00 History blood-glucose meter (Blood Glucose #1 ea 12/14/20 04/18/21 Unknown Rx Monitoring) blood sugar diagnostic (OneTouch #100 ea 12/15/20 04/18/21 Unknown Rx Ultra Test) lancets 33 gauge (OneTouch Delica #100 ea 12/15/20 04/18/21 Unknown Rx Lancets) metformin 500 mg tablet 500 mg PO DAILY 06/23/21 06/30/21 06/23/21 08:00 History Allergies Allergy/AdvReac Type Severity Reaction Status Date / Time latex Allergy ALGY-Hives Verified 04/19/21 10:37 Current Medications Generic Name Dose Route Start Last Admin Trade Name Freq PRN Reason Stop Dose Admin Lactated Ringer's 1,000 mls @ 999 mls/hr 07/07/21 15:00 07/07/21 14:26 Lactated Ringers IV 07/07/21 16:00 500 mls/hr .Q1H1M ONE Administration [facility] Anesthesia Medical History History of gestational diabetes diet controlled with both pregnancies 2012 2019 No pertinent past medical history neghx: htn,dm,thyroid,dvt/pe PCP: January Hardy in [place] Surgical History H/O carpal tunnel repair Left--2013 Right--2014 History of section (~2012) S/P repeat low transverse (08/31/19) Repeat low transverse Dr. Rojas at [facility] Family History Mother No problems noted. Grandmother Colon cancer maternal great Hypertension paternal Father Diabetes Family/Other Diabetes paternal uncle Denies family history of Ovarian cancer Heart disease Breast cancer Uterine cancer Thyroid disease Stroke Female Reproductive History : 3 Data Anesthesia : 07/07/21 10:30 07/07/21 10:30 Short CBC 07/07/21 Range/Units 10:30 WBC 10.4 H (4.0-10.0) 10^3/uL Hgb 10.0 L (11.5-15.3) g/dL Hct 31.2 L (37.0-47.0) % MCV 85.5 (81-99) fl Plt Count 263 (130-400) 10^3/cmm Neut % (Auto) 76.7 % Neut # (Auto) 8.00 H (1.8-7.7) 10^3/uL BMP 07/07/21 10:30 Sodium 134 L Potassium 3.8 Chloride 100 Carbon Dioxide 23 BUN 7 Creatinine 0.5 Glucose 82 Calcium 9.4 Liver Function 07/07/21 Range/Units 10:30 Total Bilirubin 0.2 (0.15-1.2) mg/dL AST 12 (0-32) U/L ALT 8 (0-33) U/L Alkaline Phosphatase 105 (35-105) IU/L Albumin 3.7 (3.5-5.2) g/dL COVID Results 07/07/21 11:15 Coronavirus 229E (PCR) Not detected SARS-CoV-2 (PCR) Not detected Cardiac Studies: No Data to Display
--- NOTE | 2021-07-07 16:06 | PM.OPHPUD ---
Labor & Delivery H&P Update Date of Procedure: July 07, 2021 Date H&P Performed: 07/07/21 Admission Diagnosis: Preop diagnosis: PregnancyInduced Hypertension, GDM, repeat section, desired surgic Planned procedure: Operation Date: 07/07/21 16:20 Proposed Procedures p Section Repeat With Tubal(Not Applicable) - Jocelyn Welch MD Other information: This is a 25-year-old at 37 weeks 1 day gestation who presented here today for NST secondary to -induced hypertension (suspected chronic hypertension), and gestational diabetes mellitus. Her blood pressures had normally been running 140s over 90s without medication. Today she had several severely elevated blood pressures (171/105), greater than 15 minutes apart. Since she is term, decision was made to go ahead and proceed with repeat section. She desires to have a bilateral tubal ligation as well. Her gestational diabetes has been very well controlled on Metformin ER 500mg once daily.
--- NOTE | 2021-07-07 17:45 | P.OP_ITS ---
Operative Report Date of procedure: July 07, 2021 Pre-op diagnosis: Preop Diagnosis 1. Repeat section 2. Desired permanent surgical sterilization 3. -induced hypertension with suspected chronic hypertension 4. Gestational diabetes mellitus on oral hypoglycemics Post-op diagnosis: same Procedure done: Repeat low transverse section Bilateral tubal ligation Surgeon: Jocelyn Welch MD Estimated blood loss (mL): 400 IV fluids (mL): 1,000 Urine output (mL): 100 Complications: None Findings: Vertex female weight 7 pounds 15 ounces, 3600 g, Apgars 8 and 9. Procedure: After informed consent the patient was taken to the OR where spinal anesthesia was administered. She was prepped and draped in normal sterile fashion in dorsal supine position with a left lateral tilt. A Pfannenstiel skin incision was made through the prior scar and carried through to the underlying layer of fascia sharply. The fascial incision was then extended laterally using the Mayos. The fascia was then grasped with Vinay clamps and the underlying rectus muscles were dissected off taking care to avoid injury to the underlying tissue. There was a significant amount of midline scar tissue that was unable to be entered without sharp dissection using the scalpel. It was gently dissected until the peritoneum was entered bluntly and the incision site was then manually stretched. Bladder blade was inserted and the vesicouterine peritoneum was identified and entered sharply using the Metzenbaums. Bladder flap was created digitally and the bladder blade was reinserted. Uterine incision was made in a transverse fashion in the lower uterine segment. Amniotic rupture of membranes was performed using an Allis clamp. There was clear fluid. The infant's head was delivered atraumatically and the rest of the was delivered simultaneously. There was bulb suction of the mouth and nares at delivery. The cord was clamped and cut and the infant was handed to the waiting pediatric nurse. weight was 7 pounds 15 ounces, 3600 g, Apgars 8 and 9. Cord blood was obtained. The placenta was then delivered using fundal pressure. The uterus was then exteriorized from the abdomen and a dry sponge was used to clear the uterus of clots and debris. Uterine incision was then repaired using 0 chromic in a running locked fashion. A second layer of the same suture was used in an imbricating manner. There was good hemostasis. The left fallopian tube was then grasped with a Gil and a midportion of the tube was ligated and excised. A segment of the tube was sent to pathology. Tubal ostia were identified. The cut portions of the tube were coagulated using the Bovie. The right fallopian tube was then grasped with a Gil and a midportion of the tube was ligated and excised. A segment of the tube was sent to pathology. Tubal ostia were identified. The cut portions of the tube were coagulated using the Bovie. There was excellent hemostasis. The uterus was then gently returned to the abdomen. Irrigation was used to clear the gutters of clots and debris and the uterine i ncision was reinspected for hemostasis. There was omentum that was adhered to the peritoneum and was gently dissected off using the Bovie. The peritoneum along with scar tissue and rectus muscles were then reapproximated using 4-0 Vicryl in a running fashion. The subfascial tissue was inspected for hemostasis and any small bleeders were coagulated using the Bovie. The fascia was then reapproximated using 0 Vicryl in a running fashion. The subcutaneous tissue was then irrigated and any small bleeders were coagulated using the Bovie. The subcutaneous tissue was then reapproximated using 4-0 Vicryl in a running fashion. The skin was then reapproximated using 4-0 Vicryl on a Juan M needle. Steri-Strips and a pressure bandage were applied and patient went to recovery in good condition. Sponge instrument and needle counts were correct.
[2021-07-07] MEDS: dextrose 5%-lactated ringers 1,000 ML 125 ML IV (19:02)
[2021-07-07] MEDS: ketorolac 30 mg/mL INJ IVP (19:02)
[2021-07-08] VITALS: BP 112/77; PULSE 85; RESP 18; TEMP 36.7
[2021-07-08] MEDS: ketorolac 30 mg/mL INJ IVP (01:07)
[2021-07-08 02:00] VITALS: BP 135/91; PULSE 96; RESP 18; TEMP 36.9
[2021-07-08 04:00] VITALS: BP 139/94; PULSE 94; RESP 18; TEMP 36.6
[2021-07-08] MEDS: sodium chloride 0.9% 500 ML 999 ML IV (05:07)
[2021-07-08 05:38] LABS: Hemoglobin 9.6 g/dL (11.5-15.3); Mean Corpuscular Hemoglobin 27.4 pg (28.0-34.0); Mean Corpuscular Volume 85.5 fl (81-99); Mean Platelet Volume 10.8 fL (7.4-10.4); Platelet Count 213 10^3/cmm (130-400); Red Blood Count 3.51 10^6/uL (4.1-5.3); Red Cell Distribution Width 14.5 % (12.1-15.1); White Blood Count 11.2 10^3/uL (4.0-10.0)
--- NOTE | 2021-07-08 08:50 | PC.NURSE ---
Pt ambulated from room and around nurses station x2 laps. Pt tolerated well and denies and complaints. This nurse educated pt and to continue to be up and moving around in room but to get up every couple hours and ambulate in the hallways a couple laps as well, pt verbalized understanding.
--- NOTE | 2021-07-08 08:50 | ANE.PACU2 ---
Inpatient post-anesthesia follow up: Airway intact: Yes Vital signs: Temperature 97.8 F Pulse Rate 94 Respiratory Rate 18 Blood Pressure 139/94 Pulse Oximetry 100 Oxygen Delivery Me thod Room Air Oxygen Flow Rate Fraction of Inspir ed Oxygen Hydration adequate: Yes Nausea and vomiting: No Pain level: 2 Mental status: Baseline
[2021-07-08] MEDS: prenatal vitamin Capsule 1 CAP PO (10:11)
[2021-07-08] MEDS: ferrous sulfate EC 325 mg Tablet PO ×2 (10:11→18:59)
[2021-07-08] MEDS: docusate sodium 100 mg Capsule PO ×2 (10:11→18:59)
[2021-07-08] MEDS: ibuprofen 800 mg tablet PO ×3 (10:11→23:35)
[2021-07-08 10:15] VITALS: BP 137/93; PULSE 102; RESP 17; TEMP 37.3
[2021-07-08 15:05] VITALS: BP 135/96; PULSE 121; RESP 17; TEMP 36.7
--- NOTE | 2021-07-08 17:04 | P.PN_ITS ---
Subjective Subjective: Postop day #1 doing well. She is ambulating, tolerating clear liquids, she has good bowel sounds but has not yet passed flatus. She has had minimal to no bleeding. She has had excellent urine output. Vitals/I&O/Wt Last Vital Signs Temp 98.0 F 07/08/21 15:05 Pulse 121 H 07/08/21 15:05 Resp 17 07/08/21 15:05 BP 135/96 07/08/21 15:05 Pulse Ox 100 07/07/21 18:10 07/08/21 07/08/21 07/08/21 06:59 14:59 22:59 Output Total 200 / 1100 800 / 800 Balance -200 / 960 -800 / -800 Weight last 48 hrs Weight 121.563 kg Physical Exam Narrative: Sitting in bedside chair holding , alert and oriented, pupils equal round reactive to light, heart regular rate and rhythm, lungs clear to auscultation bilaterally, abdomen has appropriate postoperative tenderness, good bowel sounds throughout, incision is clean dry and intact but Steri-Strips are not in place. Extremities are edematous but there is no calf tenderness Urinary Catheter Management: Joseph: Cath Placed During This Visit: yes, but has since been removed by the nurse Reason for Continuing Indwelling Catheter: Decision to DC Catheter Urinary Catheter Date of Insertion: 07/07/21 Urinary Catheter Time of Insertion: 16:25 Date Urinary Catheter Removed: 07/08/21 Time Urinary Catheter Discontinued: 08:40 Data : 07/08/21 05:25 07/07/21 10:30 A&P Assessment and plan (1) Status post repeat low transverse section: Patient is postop day #1 repeat section with bilateral tubal ligation. She is doing very well. She has not passed flatus but she has very good bowel sounds and is requesting to eat. I will allow her to attempt solids with the precaution that she needs to go slowly and stop if she has any nausea. Status: Acute (2) Request for sterilization: Postop day 1 bilateral tubal ligation with her repeat section Status: Acute (3) Gestational diabetes mellitus (GDM): She was controlled on a minimal amount of Metformin. DC Metformin and recheck at 8-12 weeks Status: Acute (4) induced hypertension, delivered, current hospitalization: Her pressures have improved. She does have some diastolics in the 90s. She continues to not require any antihypertensives. Status: Acute Attestations Medical Necessity Statement*: Routine and postoperative care Coding Level of Care Code Acute Environmental Scientist for Chg Fwd Diagnoses Status post repeat low transverse section Z98.891 Request for sterilization Z30.2 Gestational diabetes mellitus (GDM) O24.419 induced hypertension, delivered, current hospitalization O13.4
[2021-07-08] MEDS: HYDROcodone-acetaminophen 5-325 mg Tablet PO (18:59)
[2021-07-08 22:24] VITALS: BP 127/89; PULSE 99; TEMP 36.7; O2SAT 96
[2021-07-09] MEDS: HYDROcodone-acetaminophen 5-325 mg Tablet PO ×3 (00:39→15:09)
[2021-07-09 04:37] VITALS: BP 129/85; PULSE 89; TEMP 36.8; O2SAT 98
[2021-07-09] MEDS: docusate sodium 100 mg Capsule PO (09:31)
[2021-07-09] MEDS: prenatal vitamin Capsule 1 CAP PO (09:31)
[2021-07-09] MEDS: ferrous sulfate EC 325 mg Tablet PO (09:31)
[2021-07-09] MEDS: ibuprofen 800 mg tablet PO ×2 (09:31→15:09)
[2021-07-09 09:33] VITALS: BP 137/91; PULSE 106; RESP 16; TEMP 37.2
--- NOTE | 2021-07-09 13:51 | P.DS_ITS ---
Discharge Providers Date of Admission: 07/07/21 12:09 Date of Discharge: July 09, 2021 Attending Provider at Admission: Jocelyn Welch MD Attending Provider at Discharge: Jocelyn Welch MD Primary Care Provider: KERON Luke Diagnoses at Discharge Discharge Diagnosis (1) Status post repeat low transverse section: Status: Acute (2) Request for sterilization: Status: Acute (3) Gestational diabetes mellitus (GDM): Status: Acute (4) induced hypertension, delivered, current hospitalization: Status: Acute Reason for Visit Reason for Visit: NST Hospital Course Hospital Course This is a 25-year-old G3 now P3 who is status post repeat section and bilateral tubal ligation. Her was complicated by -induced hypertension (possible chronic hypertension) and gestational diabetes mellitus. She did not require antihypertensives as her blood pressures were only mildly elevated until the day of delivery. Her gestational diabetes mellitus was initially diet controlled and recently started on Metformin 500 mg daily. Her blood sugars have been great and her A1c was within normal limits. She has done well postoperatively. She has had very minimal to no bleeding. She has been ambulating, tolerating a regular diet and has good pain control. She is eager to be discharged home. Physical Exam Narrative: Alert and oriented sitting up in bed, pupils equal round reactive to light extraocular movements intact, heart regular rate and rhythm, lungs clear to auscultation bilaterally, abdomen is soft with appropriate postoperative tenderness near the incision site. Incision is intact, Steri- Strips are a bit moist, there is no erythema. Extremities have some nonpitting edema but no calf tenderness. Urinary Catheter Management: Joseph: Cath Placed During This Visit: yes, but has since been removed by the nurse Reason for Continuing Indwelling Catheter: Decision to DC Catheter Urinary Catheter Date of Insertion: 07/07/21 Urinary Catheter Time of Insertion: 16:25 Date Urinary Catheter Removed: 07/08/21 Time Urinary Catheter Discontinued: 08:40 Discharge Data Studies Completed and Pending Pending at discharge Category Date Time Status Pathology: Surgical [PTH] Routine Pth 07/07/21 19:01 Ordered Laboratory Results WBC 11.2 10^3/uL (4.0-10.0) H 07/08/21 05:25 RBC 3.51 10^6/uL (4.1-5.3) L 07/08/21 05:25 Hgb 9.6 g/dL (11.5-15.3) L 07/08/21 05:25 Hct 30.0 % (37.0-47.0) L 07/08/21 05:25 MCV 85.5 fl (81-99) 07/08/21 05:25 MCH 27.4 pg (28.0-34.0) L 07/08/21 05:25 MCHC 32.0 g/dL (30.0-36.0) 07/08/21 05:25 RDW 14.5 % (12.1-15.1) 07/08/21 05:25 Plt Count 213 10^3/cmm (130-400) 07/08/21 05:25 MPV 10.8 fL (7.4-10.4) H 07/08/21 05:25 Neut % (Auto) 76.7 % 07/07/21 10:30 Lymph % (Auto) 13.2 % 07/07/21 10:30 [place] % (Auto) 8.0 % 07/07/21 10:30 Eos % (Auto) 0.9 % 07/07/21 10:30 Baso % (Auto) 0.2 % 07/07/21 10:30 Neut # (Auto) 8.00 10^3/uL (1.8-7.7) H 07/07/21 10:30 Lymph # (Auto) 1.4 10^3/uL (0.8-4.8) 07/07/21 10:30 [place] # (Auto) 0.8 10^3/uL (0.2-0.9) 07/07/21 10:30 Eos # (Auto) 0.1 10^3/uL (0.0-0.8) 07/07/21 10:30 Baso # (Auto) 0.0 10^3/uL (0.0-0.1) 07/07/21 10:30 Nucleated RBC % (auto) 0 % 07/07/21 10:30 Nucleated RBCs # 0.0 /100WBC 07/07/21 10:30 Sodium 134 mmol/L (136-145) L 07/07/21 10:30 Potassium 3.8 mmol/L (3.5-5.1) 07/07/21 10:30 Chloride 100 mmol/L (98-107) 07/07/21 10:30 Carbon Dioxide 23 mmol/L (22-29) 07/07/21 10:30 Anion Gap 14.8 (5-19) 07/07/21 10:30 BUN 7 mg/dL (6-20) 07/07/21 10:30 Creatinine 0.5 mg/dL (0.5-0.9) 07/07/21 10:30 GFR Calculation 149.1 mL/min (90-130) H 07/07/21 10:30 Glucose 82 mg/dL (65-115) 07/07/21 10:30 Calculated Osmolality 275 mOsm/kg (285-295) L 07/07/21 10:30 Uric Acid 4.1 mg/dL (2.4-5.7) 07/07/21 10:30 Calcium 9.4 mg/dL (8.5-10.5) 07/07/21 10:30 Total Bilirubin 0.2 mg/dL (0.15-1.2) 07/07/21 10:30 AST 12 U/L (0-32) 07/07/21 10:30 ALT 8 U/L (0-33) 07/07/21 10:30 Alkaline Phosphatase 105 IU/L (35-105) 07/07/21 10:30 Total Protein 6.7 g/dL (6.6-8.7) 07/07/21 10:30 Albumin 3.7 g/dL (3.5-5.2) 07/07/21 10:30 Globulin 3.0 g/dL (1.3-4.6) 07/07/21 10:30 U Random Total Protein 18 mg/dL 07/07/21 10:30 Urine Creatinine 153 mg/dL (28-217) 07/07/21 10:30 Protein/Creatinin Ratio 0.12 mg/mg CR 07/07/21 10:30 Coronavirus 229E (PCR) Not detected (NOT DETECT) 07/07/21 11:15 SARS-CoV-2 (PCR) Not detected (NOT DETECT) 07/07/21 11:15 Blood Type O Positive 07/07/21 10:30 Rho(D) Type Positive 07/07/21 10:30 Antibody Screen Negative 07/07/21 10:30 Vitals Last Vital Signs Temp 99.0 F 07/09/21 09:33 Pulse 106 H 07/09/21 09:33 Resp 16 07/09/21 09:33 BP 137/91 07/09/21 09:33 Pulse Ox 98 07/09/21 04:37 Discharge Plan Discharge Patient Disposition: Home Condition: Stable Prescriptions: New ibuprofen 800 mg Tablet 800 mg PO TID PRN (Reason: Abdominal Discomfort) 10 Days Qty: 30 0RF hydrocodone-acetaminophen 5-325 mg Tablet 1 - 2 tab PO Q4H PRN (Reason: Moderate To Severe Pain) Qty: 12 0RF docusate sodium 100 mg Capsule 100 mg PO BID 30 Days Qty: 60 0RF Continued prenat.vits,georgie,zai-pmhg-ptysx Tablet 1 tab PO DAILY 0RF Discontinued (DME) blood-glucose meter [Blood Glucose Monitoring] Kit See Rx Instructions .Route Qty: 1 0RF Rx Instructions: As directed (DME) OneTouch Ultra Test Strip See Rx Instructions .Route Qty: 100 8RF Rx Instructions: patient to check blood sugar 5-6 times daily (DME) lancets [OneTouch Delica Lancets] 33 gauge misc See Rx Instructions .Route Qty: 100 8RF Rx Instructions: patient to check blood sugars 5-6 times daily metformin 500 mg Tablet 500 mg PO DAILY 0RF Referrals: Jocelyn Welch MD [Physician] - 1-3 days Discharge Diet: Usual diet Discharge Activity: Limit activity as instructed Patient Instructions: Depression (DC), Bleeding (DC), Preeclampsia and Eclampsia After Delivery (GEN), COVID-19 and (GEN), OB - Mackenzie/Rebekah, OB Discharge Report, OB Food/Drug Interaction Guide, OB Care at Home, Opioid Safety, OB Home Care Discharge Attestations Time Spent in Discharge Care*: less than 30 min Status at Discharge: Cognitive status at discharge: cognitively intact , Behavioral status at discharge: cooperative , Quality Metrics Clinical Quality Measures [ No reported AMI, CVA or VTE this stay] Coding Level of Care Code Acute Chg FW DC note Diagnoses Status post repeat low transverse section Z98.891 Request for sterilization Z30.2 Gestational diabetes mellitus (GDM) O24.419 induced hypertension, delivered, current hospitalization O13.4
[2021-07-09 15:20] VITALS: BP 142/93; PULSE 119; RESP 17; TEMP 36.7; O2SAT 96
== END 2021-07-09 15:35 | disposition home or self-care (01) | DRG 785 ==
LOC: OPOB 12:10 → OBGYN 12:10
PROVIDERS: Admitting Provider Family Medicine; Family Provider Registered Nurse; PCP Registered Nurse; Visit Provider Family Medicine
PROC: 10D00Z1 Extraction of Products of Conception, Low, Open Approach (ICD-10-PCS; CPT 59514; principal; 2021-07-07 16:00)
DX: O34.211 Maternal care for low transverse scar from previous cesarean delivery (principal); O13.4 Gestational [pregnancy-induced] hypertension without significant proteinuria, complicating childbirth; O24.429 Gestational diabetes mellitus in childbirth, unspecified control; Z3A.37 37 weeks gestation of pregnancy; Z37.0 Single live birth; Z79.84 Long term (current) use of oral hypoglycemic drugs; Z30.2 Encounter for sterilization; Z77.22 Contact with and (suspected) exposure to environmental tobacco smoke (acute) (chronic)
CPT/HCPCS: 36415; 51702; 59025; 59409; 80053; 82570; 84156; 84550; 85025; 85027; 86850; 86900; 87635; 88302; 96374; 99211; J0690; J1885; J2274; J2765; J3490; J7030; J7040

== ENCOUNTER → 2022-05-02 08:33 | Outpatient (BNVA) | payer MEDICAID, SELFPAY | PROVIDERS: Family Provider Registered Nurse; PCP Registered Nurse; Visit Provider Podiatrist Foot & Ankle Surgery | DX: M79.89 Other specified soft tissue disorders (principal); M25.572 Pain in left ankle and joints of left foot | CPT/HCPCS: 73610 ==

== ENCOUNTER 2022-05-24 10:21 | Day surgery (SDC) | payer MEDICAID, SELFPAY ==
[2022-05-24 10:31] VITALS: BP 156/111; PULSE 79; RESP 16; TEMP 36.8; O2SAT 100
[2022-05-24] MEDS: sodium chloride 0.9% 1,000 ML 30 ML IV (10:56)
[2022-05-24] MEDS: gabapentin 300 mg Capsule PO (10:57)
[2022-05-24] MEDS: CELEcoxib 200 mg Capsule 400 MG PO (10:57)
--- NOTE | 2022-05-24 11:04 | ANES.PREANE2 ---
Pre-Anesthetic Assessment Height/Weight: Height 1.52 m Weight 108.862 kg Temp Pulse Resp BP Pulse Ox O2 Del Method 98.2 F 79 16 156/111 100 05/24/22 10:31 05/24/22 10:31 05/24/22 10:31 05/24/22 10:31 05/24/22 10:31 05/24/22 10:50 Preop Diagnosis: Left foot soft tissue mass Operation Date: 05/24/22 12:00 Proposed Procedures p Left ankle soft tissue mass excision CPT 49963 M67.40(Left) - Dennis Esteban DPM Familial anesthetic complications: None Was Beta Femi taken within 24 hours: N/A Was Clonidine taken within 24 hours: N/A Last intake: Intake Last Liquid Date 05/23/22 Last Liquid Time 18:00 Last Solid Date 05/23/22 Last Solid Time 18:00 Social No alcohol and No tobacco Exam alert, oriented x 3, clear to auscultation bilaterally and regular rate & rhythm Airway Mallampati: Class II Dentition: full Metabolic Morbid Obesity hx gestational DM Anesthetic Plan ASA status: 2 Anesthesia: MAC Risk of > 500 ml blood loss (7ml/kg in children): No Medications/Allergies Home Medications Medication Instructions Recorded Confirmed Last Taken Type metformin 500 mg tablet,extended 500 mg PO DAILY 05/23/22 05/23/22 05/22/22 History release 24 hr Allergies Allergy/AdvReac Type Severity Reaction Status Date / Time latex Allergy ALGY-Hives Verified 05/24/22 10:39 Current Medications Generic Name Dose Route Start Last Admin Trade Name Freq PRN Reason Stop Dose Admin Sodium Chloride 1,000 mls @ 30 mls/hr 05/24/22 10:45 05/24/22 10:56 Sodium Chloride 0.9% IV 05/25/22 10:44 30 mls/hr .Q24H HARISH Administration PFSH Anesthesia Medical History History of gestational diabetes diet controlled with both pregnancies 2012 2019 No pertinent past medical history neghx: htn,dm,thyroid,dvt/pe PCP: January Hardy in [place] Surgical History H/O carpal tunnel repair Left--2014 Right--2014 History of section (~2012) S/P repeat low transverse (08/31/19) Repeat low transverse Dr. Rojas at [facility] Family History Mother No problems noted. Grandmother Colon cancer maternal great Hypertension paternal Father Diabetes Family/Other Diabetes paternal uncle Denies family history of Ovarian cancer Heart disease Breast cancer Uterine cancer Thyroid disease Stroke Data Anesthesia Cardiac Studies: No Data to Display
[2022-05-24 11:23] LABS: Glucose Point of Care 85 mg/dL (70-110)
--- NOTE | 2022-05-24 11:49 | W.PM.OPSUD ---
Surgery/Procedure H&P Update DATE OF PROCEDURE: May 24, 2022 DATE H&P PERFORMED: 05/02/22 CHANGES TO PREVIOUS DOCUMENTATION: No changes PREOP DIAGNOSIS: Left foot soft tissue mass PLANNED PROCEDURE: Operation Date: 05/24/22 12:00 Proposed Procedures p Left ankle soft tissue mass excision CPT 56067 M67.40(Left) - Dennis Esteban DPM
[2022-05-24] MEDS: ceFAZolin 2,000 MG in sodium chloride 0.9% (plus) 50 ML 100 MG IV (12:05)
[2022-05-24 12:19] LABS: OR HCG Qualitative Urine Negative (Negative)
[2022-05-24 13:06] VITALS: BP 119/86; PULSE 86; RESP 16; TEMP 36.1; O2SAT 99
[2022-05-24 13:11] VITALS: BP 141/92; PULSE 80; RESP 17; O2SAT 100
[2022-05-24 13:16] VITALS: BP 151/95; PULSE 80; RESP 16; TEMP 36.1; O2SAT 100
[2022-05-24 13:20] VITALS: BP 130/90; PULSE 81; RESP 16; TEMP 36.3; O2SAT 100
[2022-05-24] MEDS: HYDROcodone-acetaminophen 5-325 mg Tablet 1 TAB PO (13:40)
[2022-05-24 13:45] VITALS: BP 137/81; PULSE 80; RESP 18; O2SAT 100
--- NOTE | 2022-05-24 15:45 | PM.OP ---
Operative Report Date of procedure: May 24, 2022 Pre-op diagnosis: Preop Diagnosis Left foot soft tissue mass Post-op diagnosis: Same Post-op findings: Fluid-filled cyst with clear gelatinous contents stemming from the subtalar joint of the left medial ankle. Procedure done: Left foot soft tissue mass excision CPT 24425 Specimens removed/disposition: Soft tissue mass left foot Pathology: Soft tissue mass left foot sent to pathology for surgical pathology Surgeon: Dr. Dennis Esteban, D.P.M. Estimated blood loss: Less than 20 cc Complications: None Findings: See above Procedure: Patient is a 26-year-old female that has a history of left ankle soft tissue mass. The patient has had the aforementioned chief complaint for some time. Conservative treatment measures have been attempted and the patient has opted for surgical intervention at this time. A lengthy discussion regarding the procedure, including risks and complications has been had with the patient and is noted in the recent clinic note. Written and verbal consent have been obtained. All patient questions have been answered to the patient?s satisfaction. No written or verbal guarantees have been given or implied. The patient has been NPO since midnight. The history has been reviewed and the history and physical is current. The signed consent was confirmed and placed in the patient chart. Patient imaging has been reviewed and is consistent with the diagnosis. Under mild sedation, the patient was brought into the operating room and placed on the table in the supine position. IV antibiotics were given by the anesthesia team as preoperative surgical prophylaxis. IV sedation was then performed by the anesthesiateam. A local field block was then performed using 0.5% Marcaine plain. A pneumatic tourniquet was then placed about the left ankle. The operative extremity was then prepped and draped in the usual fashion. The extremity was then elevated and exsanguinated before the tourniquet was inflated to 250 mmHg. After inflation, the following procedure was then performed. Attention was directed to the medial aspect of the left ankle, a 5 cm incision was made overlying the soft tissue mass using a #15 blade. Dissection was carried out the subcutaneous superficial fascia. Any bleeders were cauterized as necessary. Care was taken to identify and retract adjacent vital structures such as the posterior tibial tendon as well as the adjacent neurovascular bundle. Soft tissue mass was clearly visualized and was noted to be clear in appearance and cystlike with well-defined margins and stemming from the subtalar joint after dissection. Careful dissection was carried out circumferentially around the soft tissue mass to the stalk which was noted to be coming from the subtalar joint. It was then cut and bovied and passed from the operative field to be sent to specimen. The mass has appearance of a ganglion cyst with gelatinous clear fluid, benign in nature. The site was inspected for any remaining soft tissue mass which there was none. The site was then irrigated with copious months sterile saline before attention was directed to closure. Subcuticular closure was performed with 4-0 Vicryl followed by skin closure with 4-0 nylon in horizontal mattress fashion. The tourniquet was let down prior to closure and good hemostasis was achieved. Good hyperemic response was noted to all digits of the left foot. Incision was dressed with Xeroform, 4 x 4 gauze, Kerlix and Torres bandage. The patient tolerated the procedure and anesthesia well and without complication. The patient was transported from the operating room to the recovery room with vital signs stable and vascular status intact to all digits of the left foot. The patient was given both written and verbal instructions to remain weightbearing as tolerated to the operative extremity, to keep dressings/splint clean, dry and intact and to take pain medication as directed. The patient will follow-up in the outpatient setting at their scheduled appointment. The patient was discharged with my personal number and was instructed to call if any questions or issues should arise. They were discharged home once anesthesia criteria was met.
--- NOTE | 2022-05-24 16:52 | ANE.PACU2 ---
Inpatient post-anesthesia follow up: Airway intact: Yes Vital signs: Temperature 97.4 F Pulse Rate 80 Respiratory Rate 18 Blood Pressure 137/81 Pulse Oximetry 100 Oxygen Delivery Me thod Room Air Oxygen Flow Rate Fraction of Inspir ed Oxygen Hydration adequate: Yes Nausea and vomiting: No Pain level: 1 Mental status: Baseline
== END 2022-05-24 14:00 | disposition home or self-care (01) ==
PROVIDERS: Anesthesiology; PCP Registered Nurse; Visit Provider Podiatrist Foot & Ankle Surgery
PROC: (CPT 28039; principal; 2022-05-24 12:00)
DX: R22.42 Localized swelling, mass and lump, left lower limb (principal); M79.89 Other specified soft tissue disorders; E66.01 Morbid (severe) obesity due to excess calories; Z68.42 Body mass index [BMI] 45.0-49.9, adult
CPT/HCPCS: 28039; 36416; 81025; 82962; 84703; 88307; C9290; J0690; J2250; J2704; J3010; J3490; J7030

== ENCOUNTER → 2023-01-02 19:06 | Outpatient (BNVA) | payer MEDICAID, SELFPAY | PROVIDERS: PCP Registered Nurse; Visit Provider Registered Nurse Neonatal Intensive Care | DX: N39.0 Urinary tract infection, site not specified (principal) | CPT/HCPCS: 81000; 87086 ==

== ENCOUNTER 2023-01-29 20:30 | Emergency (ER) | payer MEDICAID, SELFPAY ==
[2023-01-29 20:37] VITALS: BP 160/105; PULSE 83; RESP 14; TEMP 36.8; O2SAT 97; BMI 46.8
--- NOTE | 2023-01-29 20:42 | CTR_ITS ---
PROCEDURE INFORMATION: Exam: CT Head Without Contrast Exam date and time: 01/29/2023 8:47 PM Age: 27 years old Clinical indication: Injury or trauma; Work related; Blunt trauma (contusions or hematomas); Injury details: Hit head on metal cylinder at work, headache TECHNIQUE: Imaging protocol: Computed tomography of the head without contrast. Radiation optimization: All CT scans at this facility use at least one of these dose optimization techniques: automated exposure control; mA and/or kV adjustment per patient size (includes targeted exams where dose is matched to clinical indication); or iterative reconstruction. REPORTING DATA: Count of CT and Cardiac NM exams in prior 12 months: This patient has received 0 known CTs and 0 known cardiac nuclear medicine studies in the 12 months prior to the current study. COMPARISON: No relevant prior studies available. RADIATION DOSE METRICS: Total DLP (mGy-cm): 1111 FINDINGS: Brain: Mild cerebral atrophy. No hemorrhage. Unremarkable white matter. No mass effect. Cerebral ventricles: No ventriculomegaly. Paranasal sinuses: Visualized sinuses are unremarkable. No fluid levels. Mastoid air cells: Visualized mastoid air cells are well aerated. Bones/joints: Unremarkable. No acute fracture. Soft tissues: Unremarkable. CT/CT head wo con* [id number] IMPRESSION: No acute intracranial findings.
--- NOTE | 2023-01-29 20:46 | W.ED.HEATRA ---
HPI - Head Injury General: Chief complaint: Head Injury Stated complaint: hit head, head pain, blurry vision, nausia Time Seen by Provider: 01/29/23 20:34 Source: patient Mode of arrival: ambulatory Limitations: no limitations History of Present Illness: 27-year-old female who states that she did hit her head on a metal cylinder today at work at 10 AM states she been having a severe headache since then. She rates her headache a 9 out of 10 denies any LOC denies any vomiting she denies any neck pain denies any worsening proving factors Associated symptoms: Deny nausea, neck pain or vomiting Review of Systems Const: Denies: fever(s), chills, body aches or change in appetite Eyes: Denies: blurry vision or eye discomfort ENMT: Denies: throat pain or dental pain Card: Denies: chest pain Resp: Denies: dyspnea GI: Denies: abdominal pain, nausea, vomiting or diarrhea Musc: Denies: neck pain or back pain Neuro: Reports: headache(s) PFSH ED PFSH: Medical History History of gestational diabetes diet controlled with both pregnancies 2012 2019 No pertinent past medical history neghx: htn,dm,thyroid,dvt/pe PCP: January Hardy in [place] Surgical History H/O carpal tunnel repair Left--2014 Right--2014 History of section (~2012) S/P repeat low transverse (08/31/19) Repeat low transverse Dr. Rojas at [facility] Family History Mother No problems noted. Grandmother Colon cancer maternal great Hypertension paternal Father Diabetes Family/Other Diabetes paternal uncle Denies family history of Ovarian cancer Heart disease Breast cancer Uterine cancer Thyroid disease Stroke Social History Substance/Drug Use: never Physical Exam Const: COMMON NORMALS: no acute distress, patient oriented x3 and healthy appearing HENMT: COMMON NORMALS: normocephalic and atraumatic HEAD & SCALP: normocephalic and atraumatic Eye: COMMON NORMALS: conjunctivae normal CONJUNCTIVA: Yes conjunctivae normal Neck/C-Spine: COMMON NORMALS: full ROM and supple Chest: COMMONS NORMALS: normal inspection of the chest Resp: COMMON NORMALS: normal respiratory effort Cardio: COMMON NORMALS: regular rate, regular rhythm and No murmurs present (Cardio) RATE: regular rate RHYTHM: regular rhythm Extremity: COMMON NORMALS: normal to inspection and full ROM Neuro: COMMON NORMALS: patient oriented x3, moves all extremities and no focal motor deficits Psych: COMMON NORMALS: mental status grossly normal, Normal thought process present and cooperative THOUGHT PROCESS: Normal thought process present Skin: COMMON NORMALS: no rashes or lesions noted and no wounds GENERAL SKIN EXAM: no rashes or lesions noted Course Vital Signs: Vital signs: Vital Signs Temperature 98.3 F 01/29/23 20:37 Pulse Rate 83 01/29/23 20:37 Respiratory Rate 14 01/29/23 20:37 Blood Pressure 160/105 01/29/23 20:37 Pulse Oximetry 97 01/29/23 20:37 Oxygen Delivery Me thod Room Air 01/29/23 20:37 MDM - Head Injury Medcial Decision Making Patient presents with closed head injury head CT is normal she is well-appearing here she is stable for discharge she is to follow-up with PCP and return if worsening Medical Records I reviewed the patient's medical records. Lab Data I reviewed the patient's lab results. Radiology Impressions Head CT 01/29/23 20:42 IMPRESSION: No acute intracranial findings. Discharge Plan Discharge Patient Disposition: Home Clinical Impression: Closed head injury Condition: Stable Prescriptions: No Action fenofibrate 50 mg capsule 50 mg PO DAILY fluticasone propionate [Flonase Allergy Relief] 50 mcg/actuation spray,suspension 1 spray intranasal BID PRN (Reason: nasal congestion) Qty: 16 2RF Rx Instructions: administer into each nostril twice per day famotidine [Pepcid] 40 mg tablet 40 mg PO BID 5 Days Qty: 10 0RF mupirocin 2 % ointment 1 applic topical BID Qty: 22 0RF sulfamethoxazole-trimethoprim [Bactrim DS] 800-160 mg tablet 1 tab PO BID 5 Days Qty: 10 0RF metformin 500 mg tablet extended release 24 hr 500 mg PO DAILY Discharge Orders: Discharge ED (Routine); Ordered 01/29/23 Ordered By: Ángela Barbosa Referrals: January Alvarez FNP [Primary Care Provider] - 1-3 days Discharge Diet: Advance as tolerated Discharge Activity: Resume usual activity Patient Instructions: Head Injury (ED) Coding Level of Care Code ED Superintendent Communications for Hortencia Jorgensen
[2023-01-29] MEDS: HYDROcodone-acetaminophen 5-325 mg Tablet 1 TAB PO (20:54)
[2023-01-29] MEDS: ondansetron 4 MG Tablet PO (20:54)
[2023-01-29 21:21] VITALS: BP 160/105; PULSE 83; RESP 14; TEMP 36.8; O2SAT 97
== END 2023-01-29 21:24 | disposition home or self-care (01) ==
PROVIDERS: Emergency Provider Emergency Medicine; PCP Registered Nurse
DX: S09.8XXA Other specified injuries of head, initial encounter (principal); Z79.84 Long term (current) use of oral hypoglycemic drugs; W22.8XXA Striking against or struck by other objects, initial encounter
CPT/HCPCS: 70450; 99284; Q0162

== ENCOUNTER → 2024-04-20 18:58 | Outpatient (BNVA) | payer MEDICAID, SELFPAY | PROVIDERS: PCP Registered Nurse | DX: M79.641 Pain in right hand (principal) | CPT/HCPCS: 73130 ==

== ENCOUNTER 2024-06-27 19:05 | Emergency (ER) | payer MEDICAID, SELFPAY ==
--- NOTE | 2024-06-27 19:06 | ECG_ITS ---
[facility]: 2024-06[facility]27 Pat Name: Noemí Zaragoza Department: Room: Gender: Female [employer]: : 1995 Requested By: Izzy Sandoval Order Number: [id number] Reading MD: Measurements Intervals [place] Rate: 130 P: 59 CA: 168 QRS: 89 QRSD: 104 T: 41 QT: 302 QTc: 444 Interpretive Statements SINUS TACHYCARDIA ABNORMAL RHYTHM ECG [email or web address]
[2024-06-27 19:10] VITALS: BP 148/86; PULSE 135; RESP 16; TEMP 39.2; O2SAT 100; BMI 48.8
[2024-06-27 19:33] LABS: Bilirubin Urine Negative (Negative); Blood Urine 2+ (Negative); Glucose Urine UA Negative (Normal); Ketones Urine Negative (Negative); Leukocyte Esterase Urine Negative (Negative); Nitrate Urine Negative (Negative); Protein Urine Negative (Negative); Specific Gravity, Urine 1.005 (1.005-1.030); Urine Appearance Clear (CLEAR); Urine Color Yellow (Yellow); Urobilinogen Urine 0.2 mg/dL (Negative); pH Urine 5.5 (5-7)
[2024-06-27 19:38] LABS: Bacteria Urine 1+ /hpf; Hyaline Casts Urine 0.81 /lpf; Squamous Epithelial Cell Urine 0-5 /hpf (0-5); WBC Urine 0-5 /hpf (0-5)
[2024-06-27 20:08] LABS: Covid PCR NEGATIVE (Negative); Influenza A POSITIVE (Negative); Influenza B NEGATIVE (Negative); Respiratory Syncytial Virus Ce NEGATIVE (Negative)
--- NOTE | 2024-06-29 15:01 | PC.NURSE ---
Called pt after they LWBS on Saturday. Dr. Barbosa gave me the instructions to give the pt the positive result for FluA. I explained she could treat her symptoms and return if worsening. Pt verbalized understanding.
== END 2024-06-27 22:33 | disposition left against medical advice (07) ==
PROVIDERS: Emergency Medicine; Emergency Provider Family Medicine; PCP Registered Nurse
DX: Z53.21 Procedure and treatment not carried out due to patient leaving prior to being seen by health care provider (principal)
CPT/HCPCS: 81001; 87637; 93005